=== PATIENT | female | born 1955 | race Caucasian/White ===

== ENCOUNTER 2021-10-06 19:25 | Observation (INO) ==
[2021-10-06] MEDS ORDERED: 0.9 % SODIUM CHLORIDE 1,000 ML IV ONE (19:43)
[2021-10-06] MEDS ORDERED: ONDANSETRON 4 MG/2 ML VIAL IV ONE (19:43)
[2021-10-06] MEDS ORDERED: PANTOPRAZOLE 40 MG VIAL IV ONE (19:48)
[2021-10-06] MEDS ORDERED: morphine 4 MG/ML VIAL IV ONE (19:49)
--- NOTE | 2021-10-06 19:53 | Emergency Department Note ---
Abdominal Pain HPI General Chief Complaint: Abdominal Pain Stated Complaint: abd pain Time Seen by Provider: 10/06/21 19:43 Source: patient and family Mode of arrival: ambulatory Limitations: no limitations History of Present Illness HPI Narrative: Narrative: 66-year-old female history of hypertension hyperlipidemia hysterectomy presents to the ED with some significant epigastric pain that started this afternoon. Also lost her appetite. Nonbloody nausea vomiting. No known history of GERD or hepatobiliary or pancreatic disease. Other than hysterectomy no prior abdominal surgeries. No melena or diarrhea or blood per rectum. No hematemesis. No fever no chills no chest pain no shortness of breath. Pain is epigastric nonradiating achy in nature. Patient very adamantly states it is not chest pain. She reports quite a bit of pain and feels diaphoretic. No other complaints. No genitourinary symptoms Related Data Home Medications Medication Instructions Recorded Confirmed aspirin 81 mg tablet,delayed 81 mg PO QDAY 08/07/16 07/17/21 release (Lo-Dose Aspirin) acetaminophen 300 mg-codeine 30 mg 1 - 2 tab PO Q6H PRN tab 06/13/20 07/17/21 tablet Previous Rx's Medication Instructions Recorded CPAP and Supplies #1 ea 11/17/18 ropinirole 0.5 mg tablet 0.5 mg PO QHS #90 tab 03/09/20 fluticasone propionate 50 1 spray INTRANASAL BID #16 g 01/15/21 mcg/actuation nasal spray,suspension (Flonase Allergy Relief) lisinopril 10 mg tablet 5 mg PO QDAY #90 tab 01/15/21 loratadine 10 mg tablet 10 mg PO QDAY #90 tab 01/15/21 metoprolol succinate 25 mg 12.5 mg PO QDAY #45 tab 01/15/21 tablet,extended release 24 hr atorvastatin 10 mg tablet 10 mg PO QDAY #90 tab 02/28/21 fenofibrate 54 mg tablet 54 mg PO QDAY #90 tab 05/27/21 ciprofloxacin HCl 250 mg tablet 250 mg PO BID #10 tab 07/17/21 (Cipro) Allergies Allergy/AdvReac Type Severity Reaction Status Date / Time Penicillins Allergy Hives Verified 10/06/21 19:26 Review of Systems ROS ROS Narrative: Narrative: All systems ED: reviewed and negative except as stated. PFSH Narrative Patient History Narrative: Narrative: Medical/Surgical/Family History All Active Problems (Updated 10/06/21 @ 22:44 by Herb Barton DO) Acute cholecystitis (Acute) UTI (urinary tract infection) (Acute) Cough (Acute) Medicare welcome visit (Acute) Preoperative cardiovascular examination (Acute) History of surgical removal of ganglion cyst (Acute 02/24/20) Tachycardia (Acute) Bilateral primary osteoarthritis of knee (Chronic) Obstructive sleep apnea (Chronic) Depression (Chronic) Colon polyps (Chronic) Hemorrhoids (Chronic) Melanosis coli (Chronic) Diverticulosis (Chronic) Right knee pain (Chronic) Chronic radicular low back pain (Chronic) Plantar fasciitis, bilateral (Chronic) Obesity (Chronic) Otitis externa, left (Chronic) Encounter for Health Maintenance Examination in Adult (Chronic) Insomnia (Chronic) Restless leg syndrome (Acute) Pedal edema (Chronic) Joint pain (Chronic) Hyperlipidemia (Chronic) Hypertension, essential (Chronic) Arthritis (Chronic) Acid reflux (Chronic ~09/2015) Medical History Acid reflux (~09/2015) Arthritis Colon polyps Diverticulosis Hemorrhoids Hyperlipidemia Hypertension, essential Joint pain Medicare welcome visit Melanosis coli Pedal edema Restless leg syndrome UTI (urinary tract infection) Surgical History H/O colonoscopy 04/25/19 H/O total hysterectomy (~1989) History of partial hysterectomy (~1988) History of surgical removal of ganglion cyst (02/24/20) Left Wrist Status post trigger finger release (09/13/19) Right 4th Family History Father Arthritis Diabetes Hypertension, essential Heart attack Mother Cancer Social History Smoking Status: Never smoker Alcohol Intake Frequency: does not drink Substance Use: does not use Exam Narrative Narrative: Narrative: Constitutional: normally developed, appears uncomfortable mildly diaphoretic Head: Normocephalic, atraumatic, Eyes: No Icterus, ENT: Moist mucus membranes, Neck: Supple, Cardiac: Normal heart sounds, palpable radial pulses, Pulmonary: Normal respiratory effort. Breath sounds clear, no wheeze, rhonchi, rales, Gastrointestinal: Abdomen soft, non-distended, tender in the epigastrium, positive clinical Duran's, Musculoskeletal: No gross deformities, well perfused Skin: warm, dry Neuro: Alert and oriented. General Limitations: no limitations Course Vital Signs Vital signs: Vital Signs Temperature 37.0 C 10/06/21 19:26 Pulse Rate 102 H 10/06/21 19:26 Respiratory Rate 22 10/06/21 19:26 Blood Pressure 162/93 10/06/21 19:26 Pulse Oximetry (%) 95 10/06/21 19:26 Temperature 37.0 C 10/06/21 19:26 Pulse Rate 80 10/06/21 22:17 Respiratory Rate 15 10/06/21 22:17 Blood Pressure 117/75 10/06/21 22:17 Pulse Oximetry (%) 96 10/06/21 22:17 MDM MDM Narrative Medical decision making narrative: Narrative: Patient with significant epigastric pain started this afternoon associated with decreased appetite watery nausea vomiting work-up is initiated Twelve-lead EKG sinus rhythm heart rate 93 MO, QRS, QTc within normal, no acute ischemia noted Chest x-ray per my interpretation no free air under the diaphragm CBC leukocytosis 11.5 Electrolytes glucose 119 tracely elevated anion gap 18 bicarb 20 LFTs mildly elevated 50s to 60s, bilirubin normal 0.6, lipase for some reason has not yet resulted Urinalysis negative for infection Troponin negative Reevaluation is feeling markedly improved bow maker machine tender in the right upper quadrant vital stable Right upper quadrant ultrasound per direct radiology shows acute cholecystitis with cholelithiasis, wall thickening and edematous 7 mm, trace pericholecystic fluid and a positive sonographic Duran's. CBD [address] Jiménez with surgery he accepts admission for further management. Discussed findings and plan with patient. Patient understanding and agreeable to plan Started on Levaquin for coverage given penicillin allergy. admitted at this time Lab Data Result diagrams: 10/06/21 19:54 10/06/21 19:54 Labs: Lab Results 10/06/21 10/06/21 10/06/21 Range/Units 19:54 19:54 20:26 WBC 11.5 H (4.5-11.0) K/mcL RBC 5.25 (3.59-5.38) M/mcL Hgb 14.8 (11.2-15.7) g/dL Hct 44.9 (34.1-44.9) % MCV 85.5 (80.0-100.0) fL MCH 28.2 (26.0-34.0) pg MCHC 33.0 (31.0-36.0) g/dL RDW 12.9 (11.5-14.5) % Plt Count 226 (140-440) K/mcL MPV 10.8 H (7.4-10.4) fL Neut % (Auto) 84.6 H (38.0-78.0) % Lymph % (Auto) 7.3 L (15.5-49.0) % [place] % (Auto) 6.7 (1.0-12.0) % Eos % (Auto) 1.0 (0.0-7.0) % Baso % (Auto) 0.4 (0.0-2.0) % Lymph # (Auto) 0.84 L (1.50-4.80) K/mcL [place] # (Auto) 0.77 (0.10-0.90) K/mcL Eos # (Auto) 0.11 (0.00-0.70) K/mcL Baso # (Auto) 0.05 (0.00-0.30) K/mcL Absolute Neutrophils 9.71 H (1.80-8.00) K/mcL Sodium 138 (133-145) mmol/L Potassium 4.0 (3.3-5.1) mmol/L Chloride 100 (96-108) mmol/L Carbon Dioxide 20 L (22-30) mmol/L Anion Gap 18.0 H (8.0-16.0) BUN 19 (8-23) mg/dL Creatinine 0.8 (0.6-1.1) mg/dL GFR Calculation 76 Glucose 119 H (70-105) mg/dL Calcium 11.0 H (8.6-10.4) mg/dL Total Bilirubin 0.6 (0.1-1.0) mg/dL AST 64 H (<32) U/L ALT 53 H (<40) U/L Alkaline Phosphatase 102 (39-117) U/L Total Protein 7.4 (5.9-8.4) gm/dL Albumin 4.8 (3.2-5.2) gm/dL Globulin 2.6 (2.2-3.7) gm/dL Albumin/Globulin Ratio 1.8 (1.0-2.3) Urine Color Yellow Urine Appearance Clear (Clear) Urine pH 8.0 (5.0-9.0) Ur Specific [place] 1.016 (1.000-1.035) Urine Protein Negative (Negative) mg/dL Urine Glucose (UA) Negative (Negative) mg/dL Urine Ketones Negative (Negative) mg/dL Urine Occult Blood Negative (Negative) mg/dL Urine Nitrate Negative (Negative) Urine Bilirubin Negative (Negative) mg/dL Urine Urobilinogen Negative mg/dL Ur Leukocyte Esterase Negative (Negative) /uL Urine RBC 0 (0-3) /hpf Urine WBC 3 (0-4) /hpf Ur Squamous Epith Cells 1 (0-4) /hpf Urine Bacteria None (0) /hpf Urine Mucus Few A (None) /hpf Ur Culture Indicated? No POC Troponin I 0 L (0.02-0.08) ng/mL Discharge Plan Patient/Caregiver Discharge Instructions Pt seen by [employer] TECHNICIAN/PA only: No Clinical Impression: Acute cholecystitis Patient Disposition: Xfer As Inpt ([facility]) Condition: Fair Follow up with: Jaime Bergman DO [Primary Care Provider] - Prescriptions: No Action ropinirole 0.5 mg tablet 0.5 mg PO QHS Qty: 90 1RF Rx Instructions: administer 1 hour before bedtime atorvastatin 10 mg tablet 10 mg tablet 10 mg PO QDAY Qty: 90 1RF fenofibrate 54 mg tablet 54 mg PO QDAY Qty: 90 1RF (DME) CPAP and Supplies Qty: 1 0RF Dose Instruction: As directed Rx Instructions: Use nightly during sleep hours. acetaminophen-codeine 300-30 mg tablet 1 - 2 tab PO Q6H PRN0RF aspirin [Lo-Dose Aspirin] 81 mg tablet,delayed release (DR/EC) 81 mg PO QDAY 0RF ciprofloxacin HCl [Cipro] 250 mg tablet 250 mg PO BID Qty: 10 0RF metoprolol succinate 25 mg tablet extended release 24 hr 12.5 mg PO QDAY Qty: 45 1RF loratadine 10 mg tablet 10 mg PO QDAY Qty: 90 3RF fluticasone propionate [Flonase Allergy Relief] 50 mcg/actuation spray,suspens ion 1 spray intranasal BID Qty: 16 0RF Rx Instructions: administer into each nostril lisinopril 10 mg tablet 5 mg PO QDAY Qty: 90 3RF
[2021-10-06 20:25] LABS: Basophils # (Auto) 0.05 K/mcL (0.00-0.30); Basophils % (Auto) 0.4 % (0.0-2.0); Eosinophils # (Auto) 0.11 K/mcL (0.00-0.70); Hematocrit 44.9 % (34.1-44.9); Hemoglobin 14.8 g/dL (11.2-15.7); Lymphocytes # (Auto) 0.84 K/mcL (1.50-4.80); Lymphocytes % (Auto) 7.3 % (15.5-49.0); Mean Cell Volume 85.5 fL (80.0-100.0); Mean Platelet Volume 10.8 fL (7.4-10.4); Monocytes # (Auto) 0.77 K/mcL (0.10-0.90); Monocytes % (Auto) 6.7 % (1.0-12.0); Neutrophils % (Auto) 84.6 % (38.0-78.0); Platelet Count 226 K/mcL (140-440); RBC 5.25 M/mcL (3.59-5.38); Red Cell Distribution Width 12.9 % (11.5-14.5); WBC 11.5 K/mcL (4.5-11.0)
[2021-10-06 20:49] LABS: ALT/SGPT 53 U/L (<40); AST/SGOT 64 U/L (<32); Albumin 4.8 gm/dL (3.2-5.2); Albumin/Globulin Ratio 1.8 (1.0-2.3); Alkaline Phosphatase 102 U/L (39-117); Bilirubin,Total 0.6 mg/dL (0.1-1.0); Blood Urea Nitrogen 19 mg/dL (8-23); Carbon Dioxide 20 mmol/L (22-30); Chloride 100 mmol/L (96-108); Globulin 2.6 gm/dL (2.2-3.7); Glomerular Filtration Rate 76; Glucose 119 mg/dL (70-105)
[2021-10-06 22:01] LABS: Appearance,Urine CLEAR (Clear); Bilirubin,Urine Negative (Negative); Color,Urine YELLOW; Culture Indicated,Urine No; Glucose,Urine (UA) Negative (Negative); Ketones,Urine Negative (Negative); Leukocyte Esterase,Urine Negative /uL (Negative); Mucus,Urine FEW /hpf; Nitrate,Urine Negative (Negative); Protein,Urine Negative (Negative); Specific Gravity,Urine 1.016 (1.000-1.035); Urine Blood Negative (Negative); Urine RBC 0 /hpf (0-3); Urine Squamous Epithelial Cell 1 /hpf (0-4); Urine WBC 3 /hpf (0-4); Urobilinogen,Urine Negative
[2021-10-06] MEDS ORDERED: LEVOFLOXACIN 750 MG/150 ML BAG IV ONE (22:28)
[2021-10-06] MEDS ORDERED: NALOXONE HCL 0.4 MG/ML VIAL IV PRN (22:37)
[2021-10-06] MEDS ORDERED: HYDROmorphone 0.5 MG/0.5 ML SYRINGE IV PRN (22:37)
[2021-10-06] MEDS ORDERED: ONDANSETRON 4 MG/2 ML VIAL IV PRN (22:37)
[2021-10-07] MEDS: LACTATED RINGERS 1,000 ML IV SCH ×3 (00:27→17:53)
--- NOTE | 2021-10-07 05:32 | Ultrasound Report ---
INDICATION: RUQ/epigastric pain TECHNIQUE: Grayscale and color flow Doppler spectral imaging COMPARISON: None. FINDINGS: Examination was initially interpreted by [facility] Gallbladder:Multiple small mobile gallstones. There is edematous gallbladder wall thickening. Gallbladder wall measures 7 mm maximally. There is minimal pericholecystic fluid. Patient was tender when scanned over the gallbladder consistent with positive sonographic Duran's sign. Appearance is consistent with cholecystitis. Common bile duct:No intra or extrahepatic bile duct dilatation.. Common bile duct measures4 mm Liver:Liver is echogenic consistent with hepatic steatosis. There is probable hepatic fatty sparing near the gallbladder fossa. No discrete intrahepatic abscess.. Liver [id number] cm Portal vein:Normal hepatopedal portal venous flow Pancreas:Visualized portions of the pancreas are normal IMPRESSION: 1. Cholelithiasis 2. , Bladder wall thickening and minimal pericholecystic fluid consistent with cholecystitis Interpreted and Authenticated by: Jaime Whipple 10/07/21
--- NOTE | 2021-10-07 05:35 | XRay Report ---
INDICATION: upright XR, epigastric pain TECHNIQUE: AP portable upright chest x-ray COMPARISON: Previous chest x-rays dated 07/17/2021, 01/15/2021, 03/20/2020 FINDINGS: Lungs:Lungs are negative. No focal pulmonary parenchymal infiltrate or mass Heart, vascular:No significant cardiomegaly. Pulmonary vascularity is normal. No pulmonary edema or pulmonary congestion Mediastinum, luz:No mediastinal widening. No hilar mass Pleura:No pleural fluid. No pleural-based mass or calcification Skeletal:Negative. IMPRESSION: Negative AP chest x-ray Interpreted and Authenticated by: Jaime Whipple 10/07/21
--- NOTE | 2021-10-07 07:32 | General Surg History&Physical ---
HPI History of Present Illness Patient information: Note initiated : 10/07/21 at 7:28 am Service Date, if different from initiated Date: [] Patient: Zena Martin a 66 y/o F admitted on 10/06/21 for abd pain. Chief Complaint: [] Chief complaint: Right upper quadrant abdominal pain History of present illness: Ms. Martin is a 66 year old F who presents with 1 day history of epigastric and right upper quadrant abdominal pain. She reports she is not had an attack like this in the past, she had nausea with emesis and then increase abdominal pain. She reports that over the last few months she is trying to lose weight because in July she underwent a knee replacement is able to get up and move around more. She reports occasional epigastric pain following fatty and greasy foods but never an episode like this. She has no fevers or chills at this time. In the emergency room work-up was consistent with acute cholecystitis, patient was admitted overnight and reports feeling somewhat better this morning. Review of Systems Review of systems: All systems are reviewed, negative other than above PFSH PFSH All Active Problems Acute cholecystitis (Acute) UTI (urinary tract infection) (Acute) Cough (Acute) Medicare welcome visit (Acute) Preoperative cardiovascular examination (Acute) History of surgical removal of ganglion cyst (Acute 02/24/20) Tachycardia (Acute) Bilateral primary osteoarthritis of knee (Chronic) Obstructive sleep apnea (Chronic) Depression (Chronic) Colon polyps (Chronic) Hemorrhoids (Chronic) Melanosis coli (Chronic) Diverticulosis (Chronic) Right knee pain (Chronic) Chronic radicular low back pain (Chronic) Plantar fasciitis, bilateral (Chronic) Obesity (Chronic) Otitis externa, left (Chronic) Encounter for Health Maintenance Examination in Adult (Chronic) Insomnia (Chronic) Restless leg syndrome (Acute) Pedal edema (Chronic) Joint pain (Chronic) Hyperlipidemia (Chronic) Hypertension, essential (Chronic) Arthritis (Chronic) Acid reflux (Chronic ~09/2015) Medical History Acid reflux (~09/2015) Arthritis Colon polyps Diverticulosis Hemorrhoids Hyperlipidemia Hypertension, essential Joint pain Medicare welcome visit Melanosis coli Pedal edema Restless leg syndrome UTI (urinary tract infection) Surgical History H/O colonoscopy 04/25/19 H/O total hysterectomy (~1989) History of partial hysterectomy (~1988) History of surgical removal of ganglion cyst (02/24/20) Left Wrist Status post trigger finger release (09/13/19) Right 4th Family History Father Arthritis Diabetes Hypertension, essential Heart attack Mother Cancer Social History marital status: alcohol intake frequency: does not drink substance use type: does not use MEDS/ALLERGIES Home Medications and Allergies Home Medications Medication Instructions Recorded Confirmed Type aspirin 81 mg tablet,delayed 81 mg PO QDAY 08/07/16 10/06/21 History release (Lo-Dose Aspirin) CPAP and Supplies #1 ea 11/17/18 07/17/21 Rx acetaminophen 300 mg-codeine 30 mg 1 - 2 tab PO Q6H PRN tab 06/13/20 10/06/21 History tablet lisinopril 10 mg tablet 5 mg PO QDAY #90 tab 01/15/21 10/06/21 Rx atorvastatin 10 mg tablet 10 mg PO QDAY #90 tab 02/28/21 10/06/21 Rx Allergies Allergy/AdvReac Type Severity Reaction Status Date / Time Penicillins Allergy Mild Hives Verified 10/07/21 06:40 Physical Examination Vital Signs Vital signs: Temp Pulse Resp BP Pulse Ox 98.6 F 79 16 142/81 94 10/07/21 07:08 10/07/21 07:08 10/07/21 07:08 10/07/21 07:08 10/07/21 07:08 General physical appearance General physical exam: well developed, well nourished and no distress Eyes Eye exam: PERRL and normal ocular movement ENT ENT exam: normal pinna, normal nares, normal mucosa, no hearing loss and no congestion Head Head exam IM: Present atraumatic and normocephalic Neck Neck exam: no masses, no bruits, trachea midline, no lymphadenopathy and no venous distension Cardiovascular Cardiovascular exam IM: Present normal rate and rhythm Respiratory Respiratory exam: normal expansion, normal respiratory effort, clear to percussion and clear to auscultation Abdomen Abdomen: Present soft, tender (RUQ, consistent with Duran's) and bowel sounds; Absent masses, guarding, rigid or rebound Hernia: Present none Genitourinary Genitourinary (Female): Present normal external genitalia Rectum Rectum: Present normal sphincter tone, no hemorrhoids, no tenderness, no masses and no bleeding Integumentary Integumentary: Present no rash, no growths and no abnormal pigmentation Neurologic Neurologic: Present normal coordination and normal sensation Musculoskeletal Musculoskeletal: Present normal gait and normal posture Psychiatric Psychiatric: Present oriented to time, oriented to person, oriented to place, speech is normal and memory intact Results Labs Result diagrams: 10/06/21 19:54 10/06/21 19:54 Labs: Abnormal lab results 10/06/21 10/06/21 10/06/21 Range/Units 19:54 19:54 20:26 WBC 11.5 H (4.5-11.0) K/mcL MPV 10.8 H (7.4-10.4) fL Neut % (Auto) 84.6 H (38.0-78.0) % Lymph % (Auto) 7.3 L (15.5-49.0) % Lymph # (Auto) 0.84 L (1.50-4.80) K/mcL Absolute Neutrophils 9.71 H (1.80-8.00) K/mcL Carbon Dioxide 20 L (22-30) mmol/L Anion Gap 18.0 H (8.0-16.0) Glucose 119 H (70-105) mg/dL Calcium 11.0 H (8.6-10.4) mg/dL AST 64 H (<32) U/L ALT 53 H (<40) U/L Urine Mucus Few A (None) /hpf POC Troponin I 0 L (0.02-0.08) ng/mL Diabetes panel 10/06/21 Range/Units 19:54 Sodium 138 (133-145) mmol/L Potassium 4.0 (3.3-5.1) mmol/L Chloride 100 (96-108) mmol/L Carbon Dioxide 20 L (22-30) mmol/L BUN 19 (8-23) mg/dL Creatinine 0.8 (0.6-1.1) mg/dL Glucose 119 H (70-105) mg/dL Calcium 11.0 H (8.6-10.4) mg/dL AST 64 H (<32) U/L ALT 53 H (<40) U/L Alkaline Phosphatase 102 (39-117) U/L Total Protein 7.4 (5.9-8.4) gm/dL Albumin 4.8 (3.2-5.2) gm/dL Calcium panel 10/06/21 Range/Units 19:54 Calcium 11.0 H (8.6-10.4) mg/dL Albumin 4.8 (3.2-5.2) gm/dL Pituitary panel 10/06/21 Range/Units 19:54 Sodium 138 (133-145) mmol/L Potassium 4.0 (3.3-5.1) mmol/L Chloride 100 (96-108) mmol/L Carbon Dioxide 20 L (22-30) mmol/L BUN 19 (8-23) mg/dL Creatinine 0.8 (0.6-1.1) mg/dL Glucose 119 H (70-105) mg/dL Calcium 11.0 H (8.6-10.4) mg/dL Adrenal panel 10/06/21 Range/Units 19:54 Sodium 138 (133-145) mmol/L Potassium 4.0 (3.3-5.1) mmol/L Chloride 100 (96-108) mmol/L Carbon Dioxide 20 L (22-30) mmol/L BUN 19 (8-23) mg/dL Creatinine 0.8 (0.6-1.1) mg/dL Glucose 119 H (70-105) mg/dL Calcium 11.0 H (8.6-10.4) mg/dL Total Bilirubin 0.6 (0.1-1.0) mg/dL AST 64 H (<32) U/L ALT 53 H (<40) U/L Alkaline Phosphatase 102 (39-117) U/L Total Protein 7.4 (5.9-8.4) gm/dL Albumin 4.8 (3.2-5.2) gm/dL All other labs normal. Imaging US - abdomen: report reviewed (Consistent with acute cholecystitis, no evidence of choledocholithiasis) A/P Assessment and plan (1) Acute cholecystitis: Status: Acute Narrative A/P Narrative: This is a pleasant 66-year-old female who presents with signs and symptoms consistent with acute cholecystitis. We will admit to the hospital, make n.p.o., IV antibiotics. We will schedule for laparoscopic cholecystectomy at the next available operating room time. Time Spent With Patient Time: Total time spent is greater than 50% in coordination of care (as documented) at patient's floor/unit and/or counseling patient:
[2021-10-07] MEDS ORDERED: MAGNESIUM SULFATE 2 GM/50 ML BAG IV ONE (16:15)
[2021-10-07] MEDS ORDERED: PHENYLephrine 1 MG/10 ML SYRINGE (ANEST) ONE (16:15)
[2021-10-07] MEDS ORDERED: SUGAMMADEX SODIUM 200 MG/2 ML VIAL IV ONE (16:15)
[2021-10-07] MEDS ORDERED: ROCURONIUM 10 MG/ML ML IV ONE (16:15)
[2021-10-07] MEDS ORDERED: LIDOCAINE HCL/PF 100 MG/5 ML SYRINGE IV ONE (16:15)
[2021-10-07] MEDS ORDERED: GLYCOPYRROLATE 0.2 MG/ML VIAL IV ONE (16:15)
[2021-10-07] MEDS ORDERED: ONDANSETRON 4 MG/2 ML VIAL ONE (16:15)
[2021-10-07] MEDS ORDERED: KETAMINE 50 MG/ML Syringe (ANEST) IV ONE (16:15)
[2021-10-07] MEDS ORDERED: HYDROmorphone 1 MG/ML SYRINGE ONE (16:15)
[2021-10-07] MEDS ORDERED: SUCCINYLCHOLINE 20 MG/ML ML IV ONE (16:15)
[2021-10-07] MEDS ORDERED: KETOROLAC 30 MG/ML VIAL ONE (16:15)
[2021-10-07] MEDS ORDERED: MIDAZOLAM 2 MG/2 ML VIAL ONE (16:15)
[2021-10-07] MEDS ORDERED: DEXAMETHASONE 10 MG/ML VIAL ONE (16:15)
[2021-10-07] MEDS ORDERED: fentaNYL 250 MCG/5 ML VIAL IV ONE (16:15)
[2021-10-07] MEDS ORDERED: PROPOFOL 200 MG/20 ML VIAL IV ONE (16:15)
[2021-10-07] MEDS ORDERED: BENZOCAINE/MENTHOL 1 LOZENGE PO PRN (16:33)
[2021-10-07] MEDS ORDERED: METOPROLOL TARTRATE 5 MG/5 ML VIAL IV PRN (16:33)
[2021-10-07] MEDS ORDERED: ONDANSETRON 4 MG/2 ML VIAL IV PRN (16:33)
[2021-10-07] MEDS ORDERED: NALOXONE HCL 0.4 MG/ML VIAL IV PRN (16:33)
[2021-10-07] MEDS ORDERED: HYDROmorphone 0.5 MG/0.5 ML SYRINGE IV PRN (16:33)
[2021-10-07] MEDS ORDERED: LABETALOL 5 MG/ML ML IV PRN (16:33)
[2021-10-07] MEDS ORDERED: METHOCARBAMOL 1,000 MG/10 ML VIAL IV PRN (16:33)
[2021-10-07] MEDS ORDERED: fentaNYL 100 MCG/2 ML VIAL IV PRN (16:33)
[2021-10-07] MEDS ORDERED: IPRATROPIUM/ALBUTEROL 3 ML AMPUL.NEB NEB PRN (16:33)
[2021-10-07] MEDS ORDERED: MEPERIDINE 25 MG/ML VIAL IV PRN (16:33)
[2021-10-07] MEDS ORDERED: ACETAMINOPHEN 1,000 MG/100 ML BAG IV ONE (16:33)
[2021-10-07] MEDS ORDERED: LACTATED RINGERS 250 ML IV PRN (16:33)
[2021-10-07] MEDS ORDERED: FLUMAZENIL 0.1 MG/ML ML IV PRN (16:33)
[2021-10-07] MEDS ORDERED: LIDOCAINE W/EPI 1% 20 ML, BUPIVACAINE 0.5% 20 ML IJ ONE (16:42)
[2021-10-07] MEDS ORDERED: LACTATED RINGERS 1,000 ML IV SCH (16:45)
--- NOTE | 2021-10-07 17:00 | Operative Note ---
Brief Operative Note Date of procedure: 10/07/21 Pre-op diagnosis: Acute cholecystitis Post-op diagnosis: same Procedure: Laparoscopic cholecystectomy Grafts/Implants: No Anesthesia: GETA Findings: Consistent with acute cholecystitis Complications: none Surgeon: Esau Jiménez Estimated blood loss (cc): 25 Specimens Removed/Pathology: other (Gallbladder and contents) Condition: stable Disposition: PACU Operative Note Operative Note: After risk benefits and alternatives to the procedure were discussed with the patient at length she verbalized understanding and desire to continue with the procedure. Patient was taken main operating room placed upon the operative table. General anesthesia was induced over endotracheal tube. Patient was prepped and draped in the standard sterile surgical fashion. Surgical timeout was taken to verify patient and procedure being performed. 1% lidocaine half percent Marcaine was used for local anesthesia throughout the case. Left upper quadrant incision was made, a varies needle was inserted and the abdominal cavity was insufflated with carbon dioxide. The abdominal cavity was then entered under direct vision using a 5 mm Optiview trocar through a supraumbilical incision. Visual inspection revealed no injuries and the varies needle was removed under direct vision. 12 mm upper midline trocar, 5 mm right upper quadrant, and a second 5 mm right upper quadrant trochars were all placed under direct vision. Patient was placed in a head up right side up position. Attention was turned to the gallbladder where omental attachments were carefully taken down with blunt and electrocautery dissection. Once this was done the peritoneal attachments were taken down to pedunculated the gallbladder in standard fashion. The trauma CHAD was carefully dissected free with blunt dissection. Once a critical view of safety was clearly identified the cystic duct and cystic artery were surgically clipped and transected. The gallbladder was removed from the gallbladder fossa using electrocautery this placed in Endo Catch bag removed through the upper midline incision and passed off the field for surgical pathology. Attention was turned back to the gallbladder fossa which was inspected for hemostasis, it was lightly irrigated and all irrigant was suctioned free from the abdominal cavity The upper midline fascial defect was then reapproximated with a interrupted 0 Vicryl suture. CO2 and trochars were removed from the abdominal cavity under direct vision. Trocar sites were inspected for hemostas is. Skin edges were closed with interrupted 4 Monocryl sutures skin glue dressings were applied. Patient was then awakened from anesthesia transported postanesthesia care unit awake alert in good condition.
[2021-10-07] MEDS ORDERED: ATORVASTATIN 10 MG TABLET PO SCH (21:00)
[2021-10-08] MEDS: ACETAMINOPHEN W/CODEINE #3 1 TABLET PO PRN ×2 (00:43→08:55)
[2021-10-08] MEDS: LACTATED RINGERS 1,000 ML IV SCH (03:55)
--- NOTE | 2021-10-08 08:01 | Discharge Summary ---
Discharge Provider Provider Patient information: Note initiated : 10/08/21 at 8:00 am Service Date, if different from initiated Date: [] Patient: Zena Martin 66 y/o F admitted on 10/06/21 for abd pain. Chief Complaint: [] Date of admission: 10/06/21 22:56 Discharge date: 10/08/21 Primary care physician: Jaime Bergman DO Consults: 10/06/21 Consult to Physician [CONS] Stat Comment: Consulting Provider: Esau Jiménez Reason For Exam: Physician to Consult COURSE Hospital Course Hospital course: Patient is admitted for acute cholecystitis, she was taken to the operating room and underwent an uneventful laparoscopic cholecystectomy. She is now ambulatory, tolerating diet and is cleared for discharge Discharge diagnosis: Status post cholecystectomy for acute cholecystitis. Time Spent with Patient Time attestation: Total time spent providing and/or coordinating discharge services: Physical Examination Vital Signs Vital signs: Temp Pulse Resp BP Pulse Ox 97.8 F 70 20 126/70 95 10/08/21 07:39 10/08/21 07:39 10/08/21 07:39 10/08/21 07:39 10/08/21 07:39 Discharge Plan Patient/Caregiver Discharge Instructions Activity: increase activity as tolerated Diet: Regular Diet Instructions: Low Fat Diet (GEN) Activity Restrictions/Additional Instructions: Resume normal activity as tolerated, no weight lifting restrictions. May resume shower starting tonight, may return to swimming in 2 weeks. Follow-up with me in 2 to 3 weeks. Prescriptions: New ibuprofen 800 mg tablet 800 mg PO TID PRN (Reason: pain) Qty: 90 0RF acetaminophen [Tylenol 8 Hour] 650 mg tablet extended release 650 mg PO Q8H PRN (Reason: pain) Qty: 90 0RF Continued atorvastatin 10 mg tablet 10 mg tablet 10 mg PO QDAY Qty: 90 1RF (DME) CPAP and Supplies Qty: 1 0RF Dose Instruction: As directed Rx Instructions: Use nightly during sleep hours. acetaminophen-codeine 300-30 mg tablet 1 - 2 tab PO Q6H PRN (Reason: Pain) 0RF aspirin [Lo-Dose Aspirin] 81 mg tablet,delayed release (DR/EC) 81 mg PO QDAY 0RF lisinopril 10 mg tablet 5 mg PO QDAY Qty: 90 3RF Follow Up Plan Follow up with: Esau Jiménez MD [Physician] - Jaime Bergman DO [Primary Care Provider] - Patient Disposition: Home, Self-Care Prognosis: Fair Discharge Orders: Discharge Order (Routine); Ordered 10/08/21 Ordered By: Esau Jiménez Pending Pending Pending: Resuscitation Status Resuscitate (Full Code) Diet Regular Diet Start Thu 4 1752 Acetaminophen/Codeine Phosphate (Acetaminophen W/Codeine #3 1 Tablet) 1 - 2 tab PO Q6HP PRN; Protocol PRN Reason: Pain Last Admin: 10/08/21 00:43 Dose: 2 tab Documented by: AFUA Atorvastatin Calcium (Atorvastatin 10 Mg Tablet) 10 mg PO HS ELLEN Last Admin: 10/07/21 21:26 Dose: 10 mg Documented by: TC Hydromorphone HCl (Hydromorphone 0.5 Mg/0.5 Ml Syringe) 0.5 mg IV Q2HP PRN; Protocol PRN Reason: Per Pain Protocol Last Admin: 10/07/21 19:21 Dose: 0.5 mg Documented by: TC Ondansetron HCl (Ondansetron 4 Mg/2 Ml Vial) 4 mg IV Q4HP PRN; Protocol PRN Reason: Nausea And Vomiting Last Admin: 10/08/21 00:44 Dose: 4 mg Documented by: AFUA Shift Summary 10/08/21 05:09 Shift Summary by Liz Ro Admitted for cholecystitis; scope jarred done late 10/07. UP w/SBA; voiding per BR QS. Pain has been controlled w/PO meds; IV meds once for breakthru. Lap sites to abd x4; CDI w/dermabond. possible d/c today. Initialized on 10/08/21 05:09 - END OF NOTE
[2021-10-08] MEDS ORDERED: ASPIRIN 81 MG TAB.CHEW PO SCH (09:00)
[2021-10-08] MEDS ORDERED: LISINOPRIL 5 MG TABLET PO SCH (09:00)
== END 2021-10-08 09:15 | disposition home or self-care (01) ==
LOC: MEDSUR 19:25 → ED 19:25 → MEDSUR 22:56
PROVIDERS: ADMIT Surgery; ATTEND Surgery